=== PATIENT | female | born 1950 | race Caucasian/White ===

== ENCOUNTER 2019-12-31 05:57 | Day surgery (SDC) | payer MEDICARE, OTHER ==
[~2019-12-31 05:57] MED LIST: Lidocaine 1%/Sod Bicarbonate in NS 8.4% 1 ML Syringe IDERM PRN; Sodium Chloride 0.9% 10 ML Syringe FLUSH PRN
[2019-12-31] MEDS ORDERED: oxyCODONE ER 10 MG TAB.ER PO SCH (06:00)
[2019-12-31] MEDS ORDERED: Morphine 8 MG, EPINEPHrine 0.3 MG, Cefuroxime 750 MG, Ketorolac 30 MG, Sodium Chloride ... PRN ×5 (06:00)
[2019-12-31] MEDS ORDERED: Morphine 8 MG, EPINEPHrine 0.3 MG, Cefuroxime 750 MG, Sodium Chloride 0.9% 7.9 ML PRN ×4 (06:00)
[2019-12-31] MEDS ORDERED: Acetaminophen 325 MG Tab PO SCH (06:00)
[2019-12-31] MEDS ORDERED: Pregabalin 25 MG Cap PO SCH (06:00)
[2019-12-31] MEDS ORDERED: Vancomycin 1 GM SDV ONE (06:19)
[2019-12-31] MEDS ORDERED: Bupivacaine 0.25% 10 ML SDV ONE (06:19)
[2019-12-31] MEDS: Lactated Ringers 1,000 ML IV SCH ×3 (06:35→13:30)
--- NOTE | 2019-12-31 06:49 | PCM.PREANE ---
Preanesthetic Assessment - Procedure Proposed Procedure: right total knee arthroplasty - Anesthesia/Transfusion/Family Hx Anesthesia History: Prior Anesthesia Without Reaction Family History of Anesthesia Reaction: No Transfusion History: Prior Transfusion Without Reaction (with a D&C) - Review of Systems General: No Symptoms Pulmonary: No Symptoms Cardiovascular: No Symptoms Gastrointestinal: Nausea Neurological: Numbness (in feet) Other: Reports: Easy Bleeding, Easy Bruising, Diabetes (136 @ 04:30), Thyroid Problems (hypothyroid), Anxiety - Physical Assessment NPO Status Date: 12/30/19 NPO Status Time: 00:00 Vital Signs: Last Vital Signs Temp 36.1 C 12/31/19 06:05 Pulse 59 L 12/31/19 06:05 Resp 16 12/31/19 06:05 BP 118/57 L 12/31/19 06:05 Pulse Ox 96 12/31/19 06:05 Height: 1.63 m Weight: 85.275 kg ASA Class: 3 Mental Status: Alert & Oriented x3 Dentition: Reports: Stephan(s) Thyro-Mental Finger Breadths: 3 Mouth Opening Finger Breadths: 3 ROM/Head Extension: Full Lungs: Clear to Auscultation, Normal Respiratory Effort Cardiovascular: Regular Rate, Regular Rhythm - Lab Values: Laboratory Last Values SARS-CoV-2 (PCR) Not detected (NOT DETECT) 12/27/19 10:00 MRSA (PCR) Negative 12/19/19 14:00 - Allergies Allergies/Adverse Reactions: Allergies Allergy/AdvReac Type Severity Reaction Status Date / Time latex Allergy Rash Verified 12/28/19 12:41 rosuvastatin [From Crestor] Allergy Cannot Verified 12/28/19 12:41 Remember celebrex Allergy Anaphylactic Uncoded 12/28/19 12:41 Shock narcotics Allergy Itching Uncoded 12/28/19 12:41 - Blood Blood Available: No Product(s) Available: None - Anesthesia Plan Pre-Op Medication Ordered: Beta Hayder Beta Hayder: Carvedilol Med Last Dose Date: 12/31/19 Med Last Dose Time: 04:30 - Acknowledgements Anesthesia Type Planned: Spinal Pt an Appropriate Candidate for the Planned Anesthesia: Yes Alternatives and Risks of Anesthesia Discussed w Pt/Guardian: Yes Pt/Guardian Understands and Agrees with Anesthesia Plan: Yes PreAnesthesia Questionnaire HEENT History: Reports: Impaired Vision Cardiovascular History: Reports: CAD, High Cholesterol, Hypertension, Other (See Below) Other Cardiovascular History: angiogram Respiratory History: Reports: None Gastrointestinal History: Reports: Other (See Below) Other Gastrointestinal History: elevated LFTs, fatty liver Genitourinary History: Reports: None MANAGER HEART History: Reports: Other (See Below) Other OB/BYN History: breast calcifications Musculoskeletal History: Reports: Osteoarthritis Neurological History: Reports: None Psychiatric History: Reports: None Endocrine/Metabolic History: Reports: Diabetes, Type II, Hypothyroidism Hematologic History: Reports: None Immunologic History: Reports: None Oncologic (Cancer) History: Reports: None Dermatologic History: Reports: None - Past Surgical History Head Surgeries/Procedures: Reports: None HEENT Surgical History: Reports: Adenoidectomy, Oral Surgery, Tonsillectomy Cardiovascular Surgical History: Reports: None Respiratory Surgical History: Reports: None GI Surgical History: Reports: Cholecystectomy, Colonoscopy Female Surgical History: Reports: D&C Male Surgical History: Reports: None Endocrine Surgical History: Reports: None Neurological Surgical History: Reports: None Musculoskeletal Surgical History: Reports: Other (See Below) Other Musculoskeletal Surgeries/Procedures:: hand surgery, shoulder surgery Oncologic Surgical History: Reports: None Dermatological Surgical History: Reports: None - SUBSTANCE USE Tobacco Use Status *Q: Current Every Day Tobacco User Tobacco Use Within Last Twelve Months: Cigarettes Second Hand Smoke Exposure: No Days Per Week of Alcohol Use: 1 Number of Drinks Per Day: 0 Total Drinks Per Week: 0 Recreational Drug Use History: No - HOME MEDS Home Medications: Home Meds EPINEPHrine [Epipen 2-Adán] 0.3 mg SQ ASDIRECTED PRN #1 ml 07/07/14 [Rx] Ezetimibe [Zetia] 10 mg PO DAILY 07/07/14 [History] Aspirin [Halfprin] 81 mg PO DAILY 12/28/19 [History] Cholecalciferol (Vitamin D3) [Vitamin D3] 5,000 unit PO DAILY 12/28/19 [History] Fish Oil/[place]-3 Fatty Acids [Fish Oil 1,000 MG] 1 gm PO BID 12/28/19 [History] Levothyroxine 75 mcg PO DAILY 12/28/19 [History] Multivitamin 1 tab PO DAILY 12/28/19 [History] atorvaSTATin [Lipitor] 80 mg PO DAILY 12/28/19 [History] carvediloL [Coreg] 6.25 mg PO BID 12/28/19 [History] metFORMIN [Glucophage] 500 mg PO DAILY 12/28/19 [History] - CURRENT (IN HOUSE) MEDS Current Meds: Current Medications Acetaminophen (Tylenol) 975 mg PO ONETIME KRYSTAL Last Admin: 12/31/19 06:21 Dose: 975 mg Documented by: Lactated Ringer's (Ringers, Lactated) 1,000 mls @ 125 mls/hr IV ASDIRECTED KRYSTAL Stop: 12/31/19 23:00 Lidocaine/Sodium Bicarbonate (Buffered Lidocaine 1% In Ns 8.4%) 0.25 ml IDERM ONETIME PRN PRN Reason: Prior to IV Start Stop: 12/31/19 18:00 Oxycodone HCl (Oxycontin) 10 mg PO ONETIME KRYSTAL Last Admin: 12/31/19 06:21 Dose: 10 mg Documented by: Pregabalin (Lyrica) 50 mg PO ONETIME KRYSTAL Last Admin: 12/31/19 06:21 Dose: 50 mg Documented by: Sodium Chloride (Saline Flush) 10 ml FLUSH ASDIRECTED PRN PRN Reason: Keep Vein Open Stop: 12/31/19 18:00 Discontinued Medications Bupivacaine HCl (Sensorcaine-Mpf 0.25%) Confirm Administered Dose 30 ml .ROUTE .STK-MED ONE Stop: 12/31/19 06:20 Morphine Sulfate 8 mg/Epinephrine HCl 0.3 mg/Cefuroxime Sodium 750 mg/Ketorolac Tromethamine 30 mg/Sodium Chloride 7.9 ml 0 mg .XX ASDIRECTED PRN PRN Reason: Pain Morphine Sulfate 8 mg/Epinephrine HCl 0.3 mg/Cefuroxime Sodium 750 mg/Sodium Chloride 7.9 ml 0 mg .XX ASDIRECTED PRN PRN Reason: Pain Tranexamic Acid (Cyklokapron) Confirm Administered Dose 1,000 mg .ROUTE .STK-MED ONE Stop: 12/31/19 06:20 Tranexamic Acid (Cyklokapron) Confirm Administered Dose 1,000 mg .ROUTE .STK-MED ONE Stop: 12/31/19 06:26 Vancomycin HCl (Vancomycin) Confirm Administered Dose 1 gm .ROUTE .STK-MED ONE Stop: 12/31/19 06:20
[2019-12-31] MEDS ORDERED: Propofol 200 MG/20 ML SDV ONE ×3 (07:02→08:12)
[2019-12-31] MEDS ORDERED: fentaNYL 100 MCG/2 ML SDV ONE (07:03)
[2019-12-31] MEDS ORDERED: ceFAZolin 1 GM Vial ONE (07:03)
[2019-12-31] MEDS ORDERED: Ropivacaine 0.5% 5 MG/ML 30 ML SDV ONE (07:18)
[2019-12-31] MEDS ORDERED: EPINEPHrine 1 MG/ML SDV ONE (07:18)
[2019-12-31] MEDS ORDERED: Morphine 8 MG, EPINEPHrine 0.3 MG, Cefuroxime 750 MG, Sodium Chloride 0.9% 8.9 ML ONE ×4 (07:30)
--- NOTE | 2019-12-31 08:52 | PCM.POSTAN ---
POST ANESTHESIA ASSESSMENT - MENTAL STATUS Mental Status: Alert, Oriented - VITAL SIGNS Vital Signs: Last Vital Signs Temp 36.1 C 12/31/19 06:05 Pulse 59 L 12/31/19 06:05 Resp 16 12/31/19 06:05 BP 118/57 L 12/31/19 06:05 Pulse Ox 96 12/31/19 06:05 - RESPIRATORY Respiratory Status: Respiratory Rate WNL, Airway Patent, O2 Saturation Stable, Supplemental Oxygen - CARDIOVASCULAR CV Status: Pulse Rate WNL, Blood Pressure Stable - GASTROINTESTINAL GI Status: No Symptoms - PAIN Pain Score: 0 - POST OP HYDRATION Hydration Status: Adequate & Stable - OBSERVATIONS Free Text/Narrative:: NO ANESTHESIA COMPLICATIONS NOTED
--- NOTE | 2019-12-31 09:11 | PCM.SN.2 ---
- Free Text/Narrative Note: Right selective femoral nerve block at the adductor canal for post-procedure pain control under US guidance requested by Dr. Layton. Time Out: 856 Start: 856 End: 904 Chart reviewed. Consent signed. Questions answered. Appropriate monitors applied. Time out performed. Right mid-shaft femur identified with ultrasound, scanning medially of femur, the femoral artery in the adductor canal visualized, and the femoral nerve located laterally to the artery. The skin was prepped lateral to the ultrasound probe with chlorahexadine times two. The 21ga 4 insulated block needle was inserted under direct ultrasound guidance into the adductor canal. 25mL of 0.5% ropivacaine with 1:200,000 epinephrine was injected circumferentially around the nerve with intermittent negative aspiration noted. Patient tolerated the procedure well. Sterile technique noted along with sterile gloves, mask, and sterile probe cover. See picture on progress note and vital signs on nurses notes. Block completed in PACU. Bronson Naik CRNA
[2019-12-31] MEDS ORDERED: Ondansetron 4 MG/2 ML SDV IVPUSH ONE ×2 (09:25→12:15)
[2019-12-31] MEDS: oxyCODONE 5 MG Tab PO PRN ×2 (09:38→11:15)
[2019-12-31] MEDS ORDERED: Lactated Ringers 1,000 ML ONE (11:43)
--- NOTE | 2019-12-31 11:50 | PCM48HPAN ---
Post Anesthesia Note - EVALUATION WITHIN 48HRS OF ANESTHETIC Vital Signs in Normal Range: Yes Patient Participated in Evaluation: Yes Respiratory Function Stable: Yes Airway Patent: Yes Cardiovascular Function Stable: Yes Hydration Status Stable: Yes Pain Control Satisfactory: Yes (gave another pain med po) Nausea and Vomiting Control Satisfactory: Yes (still feels a little nauseated tho. meds ordered and given) Mental Status Recovered: Yes (Sitting up in bed. Ate) Vital Signs: Last Vital Signs Temp 97.3 F 12/31/19 09:45 Pulse 54 L 12/31/19 11:30 Resp 16 12/31/19 11:30 BP 126/69 12/31/19 11:30 Pulse Ox 94 L 12/31/19 11:30
[2019-12-31] MEDS ORDERED: Metoclopramide 10 MG/2 ML SDV IVPUSH ONE (12:15)
[2019-12-31] MEDS ORDERED: Acetaminophen 325 MG Tab PO ONE (14:59)
[2019-12-31] MEDS ORDERED: Cyclobenzaprine 10 MG Tab PO SCH (15:00)
[2019-12-31 19:38] VITALS: BP 140/74; PULSE 66
--- NOTE | 2020-01-03 14:54 | CR ---
PROCEDURE INFORMATION: Exam: XR Right Knee Exam date and time: 12/31/2019 8:53 AM Age: 69 years old Clinical indication: Condition or disease; Joint replacement status; Other complication; Patient HX: Total right knee replacement TECHNIQUE: Imaging protocol: XR Right knee. Views: 1 or 2 views. COMPARISON: No relevant prior studies available. FINDINGS: Bones/joints: Normal. Soft tissues: Postoperative changes of recent right TKA. The components appear well seated. Soft tissue gas and soft tissue swelling the right knee. IMPRESSION: Postoperative changes of recent right TKA. Thank you for allowing us to participate in the care of your patient. Dictated and Authenticated by: Tami Gomez MD 12/31/2019 12:59 PM Central Time ([place] & [place]) ALAN
--- NOTE | 2020-01-09 09:35 | PCM.OPNOTE ---
- General Post-Op/Procedure Note Date of Surgery/Procedure: 12/31/19 Operative Procedure(s): right total knee arthroplastry Pre Op Diagnosis: right knee osteoarthrosis Post-Op Diagnosis: Same Anesthesia Technique: Local, MAC, Spinal Primary Surgeon: Favian Layton Anesthesia Provider: Bronson Naik Gut Dropper: Caron Miller Gut Dropper: Brittaney Silva EBNicole in mLs: 5 Complications: None Condition: Good Free Text/Narrative:: 4 femur 3 tibia 9mm 29x9 cemented
--- NOTE | 2020-01-11 09:07 | OR ---
DATE OF OPERATION: 12/31/2019 SURGEON: Favian Layton MD OPERATION PERFORMED: Right total knee arthroplasty. PREOPERATIVE DIAGNOSIS: Right knee osteoarthrosis. POSTOPERATIVE DIAGNOSIS: Right knee osteoarthrosis. ANESTHESIA: Local MAC with spinal. ANESTHESIA PROVIDER: Bronson Naik CRNA ASSISTANTS: Caron Miller PA-C and Brittaney Silva LPN ESTIMATED BLOOD LOSS: 5 mL. COMPLICATIONS: None. CONDITION: Stable. IMPLANTS: 1. [place] size 4 cemented PS femur. 2. [place] size 3 cemented [place] tibial base plate. 3. [place] size 3, 9 mm PS X3 polyethylene insert. 4. [place] size 29 x 9 mm cemented asymmetric patella. DESCRIPTION OF PROCEDURE: The patient was identified in the preop holding area. Proper site was marked and identified by the surgeon. The patient was taken back to the operating theater. After adequate anesthesia, the patient's right lower extremity had a nonsterile tourniquet applied and it was sterilely prepped and draped in the usual sterile fashion. OR time-out was performed. The patient received 2 g IV Ancef. At this time, the right lower extremity was exsanguinated. Tourniquet was insufflated to 300 mmHg. Standard medial parapatellar incision was made. Medial parapatellar arthrotomy was created. Deep fibers of the MCL were raised and anterior fat pad was resected. At this time, attention was turned to the patella. Patella measured 21, it was resected to a 13 for a 29 x 9 mm patella. Drill holes were then drilled and found to be in adequate position. The drill was then drilled in the distal femur and the intramedullary distal femoral cutting guide was then placed. 10 mm was resected off the distal femur and was found to be an adequate resection. Sizing guide was placed. It was found to be a size 4 cemented PS femur that was shown on the implant record at the beginning of this dictation. The drill holes were drilled for the epicondylar axis using [place] line and epicondyles as reference. At this time, the 4-in-1 cutting block was placed. An anterior posterior and anterior and posterior chamfer cuts were then completed. Attention was turned to the tibia. The posterior medial lateral retractors were placed. The extramedullary tibial guide was placed. It was placed in the old footprint of the ACL. It was aligned with the center of the ankle and 0 degrees of slope, 9 mm was then resected off the unaffected side. There was found to be an acceptable reduction. At this time, posterior osteophytes were removed along with medial and lateral meniscus. A trial implant was placed with a correct sized tibia that was mentioned at the beginning of the dictation. A [place] size 3, 9 mm PS X3 polyethylene insert was then placed. The patient's knee was brought through range of motion. The patella was tracking centrally and was stable to varus and valgus stress. Alignment was found to be roughly at 0 degrees. The tibia was stamped and drilled in proper rotation. The universal tibial base plate was impacted in place. Next, the [place] size 4 cemented PS femur impacted into place and the [place] size 3, 9 mm PS X3 polyethylene insert was placed. The patient's knee was brought into full extension. The patella was then press-fit in place at this time. Tourniquet was deflated. One liter dilute Betadine solution was irrigated through the knee along with 3 L of pulse lavage irrigation with Ancef. Periarticular injection was then completed. The patient's knee was brought through a range of motion. Once the cement had time to set up and it was found to be stable to varus valgus stress, the patella was tracking centrally with full range of motion. At this time, a #2 barbed suture was used for closure of the medial parapatellar arthrotomy. Topical tranexamic acid was placed. 2-0 Vicryl was used subcutaneously, Prineo was used for the skin. The patient tolerated the procedure well and was sent to the PACU in stable condition. MMODAL /[id number]
== END 2019-12-31 17:15 | disposition home or self-care (01) ==
LOC: JD.SDS 05:57 → EDSTATUS 11:30 → JD.SDS 17:15
PROVIDERS: ATTEND Orthopaedic Surgery
DX: M17.11 Unilateral primary osteoarthritis, right knee (principal); I10 Essential (primary) hypertension; I25.10 Atherosclerotic heart disease of native coronary artery without angina pectoris; E66.9 Obesity, unspecified; E11.9 Type 2 diabetes mellitus without complications; E03.9 Hypothyroidism, unspecified; F17.210 Nicotine dependence, cigarettes, uncomplicated; Z68.32 Body mass index [BMI] 32.0-32.9, adult; Z01.812 Encounter for preprocedural laboratory examination; Z20.828 Contact with and (suspected) exposure to other viral communicable diseases; Z79.899 Other long term (current) drug therapy; Z79.82 Long term (current) use of aspirin; Z91.040 Latex allergy status; Z88.8 Allergy status to other drugs, medicaments and biological substances
CPT/HCPCS: 01402; 64450; 73560-26-RT; 73560-RT; 82962; 87641; 97162-GP; 97165-GO; A9270-GY; C1713; C1776; J0171; J0690; J2405; J2704; J2765; J2795; J3010; J3370; J3490; J7120; U0002